=== PATIENT | male | born 1945 | race Asian ===

== ENCOUNTER 2018-04-28 06:22 | Day surgery (SDC) | payer OTHER ==
[~2018-04-28] VITALS: Ht 160 cm; Wt 66.0 kg
[2018-04-28] MEDS ORDERED: ALBUTEROL SULFATE 2.5 MG/0.5 ML NEB SOLUTION NEB ONE (06:23)
[2018-04-28] MEDS ORDERED: LIDOCAINE 4% 50 ML SOLUTION TP ONE (06:23)
[2018-04-28] MEDS ORDERED: BENZOCAINE 20% 50 MCG/SPRAY 57 GM TP ONE (06:23)
[2018-04-28] MEDS ORDERED: LIDOCAINE 2% 30 ML JELLY TP ONE (06:23)
[2018-04-28] MEDS ORDERED: SODIUM CHLORIDE 0.9% 1,000 ML IV ONE ×2 (06:30→06:41)
[2018-04-28] MEDS ORDERED: FentaNYL CITRATE-PF 100 MCG/2 ML VIAL ONE (07:54)
[2018-04-28] MEDS ORDERED: MIDAZOLAM HCL 2 MG/2 ML VIAL ONE (07:54)
[2018-04-28] MEDS ORDERED: MethylPREDNISolone SOD SUCC 125 MG/2 ML VIAL IVP ONE (08:45)
[2018-04-28] MEDS ORDERED: OXYGEN THERAPY IH SCH (20:00)
== END 2018-04-28 10:05 | disposition home or self-care (01) ==
LOC: SURGERY 06:22
PROVIDERS: ATTEND Internal Medicine Critical Care Medicine
DX: J38.4 Edema of larynx (principal); J39.8 Other specified diseases of upper respiratory tract; J84.111 Idiopathic interstitial pneumonia, not otherwise specified; J98.09 Other diseases of bronchus, not elsewhere classified; J98.8 Other specified respiratory disorders; J45.998 Other asthma; I10 Essential (primary) hypertension; I70.8 Atherosclerosis of other arteries; E78.00 Pure hypercholesterolemia, unspecified; Z79.891 Long term (current) use of opiate analgesic; Z98.890 Other specified postprocedural states; Z79.899 Other long term (current) drug therapy
CPT/HCPCS: 31623; 31624; 71045; 87015; 87070; 87205; 87206; 87220; 88108; 88312; J2250; J2930; J3010; J7030

== ENCOUNTER → 2018-12-01 | Day surgery (SDC) | payer OTHER ==
[~2018-12-01] VITALS: Ht 162.6 cm; Wt 63.6 kg
[~2018-12-01] MED LIST: ACET12.52 PO; ALBUTEROL SULFATE 2.5 MG/0.5 ML NEB SOLUTION NEB ONE; ATOR20TA86 PO; BENZOCAINE 20% 50 MCG/SPRAY 57 GM TP ONE; DOXY100C PO; FentaNYL CITRATE-PF 100 MCG/2 ML VIAL ONE; LIDOCAINE 2% 30 ML JELLY TP ONE; LIDOCAINE 4% 50 ML SOLUTION TP ONE; MIDAZOLAM HCL 2 MG/2 ML VIAL ONE; MethylPREDNISolone SOD SUCC 125 MG/2 ML VIAL IVP ONE; OMEP20 PO; OXYGEN THERAPY IH SCH; PRED10 PO; SODIUM CHLORIDE 0.9% 1,000 ML IV ONE; TRAM50TA4 PO; VALS1TAB75 PO
== END | disposition home or self-care (01) ==
LOC: SURGERY 05:41
PROVIDERS: ATTEND Internal Medicine Critical Care Medicine
DX: J38.4 Edema of larynx (principal); B37.0 Candidal stomatitis
CPT/HCPCS: 31623; 31624; 71045; 87015; 87070; 87101; 87205; 87206; 87220; J2250; J2930; J3010; J7030

== ENCOUNTER 2021-12-04 05:21 | Day surgery (SDC) | payer OTHER ==
[~2021-12-04] VITALS: Ht 160 cm; Wt 65.9 kg
[~2021-12-04 05:21] MED LIST changes: -ACET12.52 PO; +ACET12.56 PO; -ALBUTEROL SULFATE 2.5 MG/0.5 ML NEB SOLUTION NEB ONE; -BENZOCAINE 20% 50 MCG/SPRAY 57 GM TP ONE; -FentaNYL CITRATE-PF 100 MCG/2 ML VIAL ONE; -LIDOCAINE 2% 30 ML JELLY TP ONE; -LIDOCAINE 4% 50 ML SOLUTION TP ONE; -MIDAZOLAM HCL 2 MG/2 ML VIAL ONE; -MethylPREDNISolone SOD SUCC 125 MG/2 ML VIAL IVP ONE; -OXYGEN THERAPY IH SCH; +PRED-729 PO; -PRED10 PO; -SODIUM CHLORIDE 0.9% 1,000 ML IV ONE; -VALS1TAB75 PO; +VALS1TAB76 PO
[2021-12-04] MEDS ORDERED: LEVALBUTEROL HCL 1.25 MG/0.5 ML NEB SOLUTION NEB ONE (05:22)
[2021-12-04] MEDS ORDERED: LIDOCAINE 4% 50 ML SOLUTION TP ONE (05:22)
[2021-12-04] MEDS ORDERED: BENZOCAINE 20% 50 MCG/SPRAY 57 GM TP ONE (05:22)
[2021-12-04] MEDS ORDERED: LIDOCAINE 2% 11 ML JELLY TP ONE (05:22)
[2021-12-04] MEDS ORDERED: ALBUTEROL SULFATE 2.5 MG/0.5 ML NEB SOLUTION NEB ONE (05:22)
[2021-12-04 05:50] LABS: COVID AG,FIA SOURCE NASAL SWAB
[2021-12-04] MEDS ORDERED: SODIUM CHLORIDE 0.9% 1,000 ML IV ONE (06:30)
[2021-12-04] MEDS ORDERED: SODIUM CHLORIDE 0.9% 1,000 ML ONE (06:47)
[2021-12-04] MEDS ORDERED: FentaNYL CITRATE PF 100 MCG/2 ML VIAL ONE (07:28)
[2021-12-04] MEDS ORDERED: MIDAZOLAM HCL 5 MG/ML VIAL ONE (07:29)
[2021-12-04] MEDS ORDERED: SODIUM CHLORIDE 0.9% 10 ML ONE (07:40)
[2021-12-04] MEDS ORDERED: MethylPREDNISolone SOD SUCC 125 MG/2 ML VIAL IVP ONE (09:30)
[2021-12-04] MEDS ORDERED: MethylPREDNISolone SOD SUCC 125 MG/2 ML VIAL ONE (09:38)
[2021-12-04] MEDS ORDERED: OXYGEN THERAPY IH SCH (20:00)
== END 2021-12-04 11:00 | disposition home or self-care (01) ==
LOC: SURGERY 05:21
PROVIDERS: ATTEND Internal Medicine Critical Care Medicine
DX: J38.4 Edema of larynx (principal); B37.0 Candidal stomatitis; I10 Essential (primary) hypertension; Z87.891 Personal history of nicotine dependence; Z72.89 Other problems related to lifestyle; Z79.899 Other long term (current) drug therapy; Z98.890 Other specified postprocedural states
CPT/HCPCS: 31625; 87206; 87101; 87220; 87070; 31623; 71045; 87015; 87426; J3010; J2930; J2250; Q9967; J7030; C9803; 88112; 88305; 88312; J7613; Z7610